=== PATIENT | female | born 1965 | race Caucasian/White ===

== ENCOUNTER 2017-05-14 23:23 | Emergency (ER) | payer BC ==
--- NOTE | 2017-05-14 23:39 | ED Physician Documentation ---
Female Urogenital Problems - HISTORIAN Historian: patient - HPI Chief Complaint: Female Urogenital Problems Onset: hours (1899) Severity: mild Location of Pain: other (suprapubic) Further Comments: yes (Patient developed some hematuria, urgency, dysuria this evening. Has had some chills no fever noted. Has been having some urinary frequency, urgency, hematuria, and dysuria. Denies . Has had some flank pain earlier today.) - ROS CONST: none EYES/ENT: none - PAST HX Past History: none Other History: diabetes Type 2, hypertension Surgeries/Procedures: hysterectomy, cholecystectomy Immunizations: denies: influenza Allergies/Adverse Reactions: Allergies Allergy/AdvReac Type Severity Reaction Status Date / Time No Known Allergies Allergy Verified 05/14/17 23:33 Home Medications: Ambulatory Orders Medication Instructions Recorded Amlodipine Besylate/Benazepril 1 each PO QDAY 05/14/17 [Amlodipine-Benazepril 5-20 mg] Nitrofurantoin Monohyd/M-Cryst 100 mg PO BID #14 capsule 05/14/17 [Macrobid] Phenazopyridine HCl [Pyridium] 200 mg PO BID PRN #10 tablet 05/14/17 Rosuvastatin Calcium [Crestor] 40 mg PO QDAY 05/14/17 Sitagliptin Phosphate [Januvia] 100 mg PO QDAY 05/14/17 - SOCIAL HX Smoking History: non-smoker Alcohol Use: none Drug Use: none - FAMILY HX Family History: none - REVIEWED ASSESSMENTS Nursing Assessment Reviewed: Yes Vitals Reviewed: Yes ED Results Lab/Radiology - Orders Orders: ED Orders Category Date Time Status URINALYSIS Routine Lab 05/14/17 Uncollected URINE CULTURE Routine Lab 05/14/17 Ordered Chem Sticks Med 05/14/17 23:35 Once 1 each NOW ONE Female Urogenital Problems - EXAM General Appearance: no acute distress Neck: nml inspection Respiratory: no resp. distress, breath sounds nml, respiratory distress. No: wheezes, rales, rhonchi CVS: reg rate & rhythm, heart sounds normal Abdomen: no organomegaly, no distention, nml bowel sounds, tenderness (mild suprpubic tenderness) Back: non-tender Skin: color nml, no rash Neuro: oriented X3, cognition normal Discharge Clincal Impression: Urinary tract infection Qualifiers: Urinary tract infection type: acute cystitis Hematuria presence: without hematuria Qualified Code(s): N30.00 - Acute cystitis without hematuria Prescriptions: Nitrofurantoin Monohyd/M-Cryst [Macrobid] 100 mg PO BID #14 capsule Phenazopyridine HCl [Pyridium] 200 mg PO BID PRN #10 tablet PRN Reason: urinary discomfort Additional Instructions: Drink a lot of fluids. Take Macrobid (macrodantin) with food for seven days. Take Pyridium as needed for urinary discomfort. Watch for fever or chill or increasing pain/discomfort. Follow-up with your primary care provider. Condition: Stable Disposition: 01 HOME, SELF-CARE Decision to Admit: NO Date of Decison to Admit: 05/15/17 Decision Time: 00:03
[2017-05-14 23:44] VITALS: BP 163/81
[2017-05-14] MEDS ORDERED: NITROFURANTOIN 100 MG CAPSULE PO ONE (23:52)
[2017-05-14] MEDS ORDERED: PHENAZOPYRIDINE HCL 200 MG TABLET PO ONE (23:53)
[2017-05-15 06:36] LABS: APPEARANCE,URINE CLOUDY (CLEAR); COLOR,URINE RED (YELLOW); OCCULT BLOOD,URINE 3+ (NEGATIVE); PH URINE 5.5 (5.0 - 8.0)
== END 2017-05-15 00:05 | disposition home or self-care (01) ==
LOC: ED 23:23
DX: N30.00 Acute cystitis without hematuria (principal)
CPT/HCPCS: 81002; 87086; 87186; 99283